=== PATIENT | male | born 1990 | race Caucasian/White ===

== ENCOUNTER 2025-01-13 23:02 | Emergency (ER) | payer MEDICAID ==
[~2025-01-13] VITALS: Ht 170.2 cm; Wt 95.5 kg
[2025-01-13 23:51] VITALS: O2SAT 99
[2025-01-14] MEDS: CYCLOBENZAPRINE 10MG TABLET PO ONE (00:30)
[2025-01-14] MEDS: LIDOCAINE 5% PATCH TOP SCH (00:30)
[2025-01-14] MEDS: KETOROLAC 15MG/ML VIAL IM ONE (00:30)
[2025-01-14] MEDS ORDERED: NAPR-1176 MT (01:44)
[2025-01-14] MEDS ORDERED: CYCL5TAB3 MT (01:44)
[2025-01-14] MEDS ORDERED: LIDO-53 TP (01:44)
[2025-01-14 01:54] VITALS: BP 110/78; PULSE 74; RESP 18; TEMP 36.6; O2SAT 99
== END 2025-01-14 01:55 | disposition home or self-care (01) ==
LOC: ER 23:02
DX: M54.50 Low back pain, unspecified (principal)
CPT/HCPCS: 99283; 96372; J1885